=== PATIENT | female | born 1960 | race Hispanic/Latino ===

== ENCOUNTER 2017-03-03 14:40 | Emergency (ER) | payer MEDICARE ==
[2017-03-03] MEDS ORDERED: BABY ASPIRIN PO ONE (15:34)
[2017-03-03 15:51] LABS: Basophils % (Auto) 0.9 % (0.0-1.8); Eosinophils % (Auto) 6.9 % (0.0-4.3); Hematocrit 45.5 % (30.3-42.9); Mean Corpuscular HGB Conc 33 % (30-34); Mean Corpuscular Hemoglobin 31 pg (28-32); Mean Corpuscular Volume 93 fl (79-97); Platelet Count 217 K/mm3 (140-440); Red Blood Count 4.88 M/mm3 (3.65-5.03); Red Cell Distribution Width 14.2 % (13.2-15.2); White Blood Count 12.4 K/mm3 (4.5-11.0)
[2017-03-03 16:02] LABS: INR 1.01 (0.87-1.13)
[2017-03-03 16:14] LABS: BUN/Creatinine Ratio 17.14; Blood Urea Nitrogen 12 mg/dL (7-17); Calcium 9.1 mg/dL (8.4-10.2); Carbon Dioxide 30 mmol/L (22-30); Glucose 115 mg/dL (65-100)
[2017-03-03 16:15] LABS: Alanine Aminotransferase 21 units/L (7-56); Albumin 3.7 g/dL (3.9-5); Albumin/Globulin Ratio 1.1 %; Alkaline Phosphatase 93 units/L (35-129); Anion Gap 16 mmol/L; Chloride 95.7 mmol/L (98-107); Potassium 3.6 mmol/L (3.6-5.0); Sodium 138 mmol/L (137-145)
--- NOTE | 2017-03-03 18:23 | Emergency Department Report ---
ED Chest Pain HPI - General Chief Complaint: Chest Pain Stated Complaint: CHEST PAIN Time Seen by Provider: 03/03/17 15:34 Source: patient, EMS Mode of arrival: Stretcher Limitations: Other - History of Present Illness Initial Comments: Hx of COPD on 3L home O2. Denies NH or PE. Denies significant fam hx Complaint: chest pain -: days(s) (1 day ago. No chest pain today. Reports one episode yesterday. Came in at the request of family today) Onset: during rest Pain Location: substernal Pain Radiation: none Severity: mild Severity scale (0 -10): 2 Quality: other (burning. Reports history of acid reflux) Consistency: intermittent (lasting seconds) Improves With: nothing Worsens With: nothing re: denies: nausea, vomting, diaphoresis, dyspnea, sense of impending doom Other Symptoms: acid taste in mouth. denies: cough, fever, syncope, rash, leg swelling, palpitations, burping - Related Data Allergies Allergy/AdvReac Type Severity Reaction Status Date / Time Penicillins Allergy Unknown Verified 03/03/17 14:57 Heart Score - HEART Score History: Slightly suspicious EKG: Normal Age: 45-65 Risk factors: 1-2 risk factors Troponin: < normal limit HEART Score: 2 ED Review of Systems ROS: Stated complaint: CHEST PAIN Other details as noted in HPI Other: GENERAL: No weight change, fatigue, weakness, fever, chills, or night sweats SKIN: No changes in skin or hair, no itching, no rashes, no jaundice HEAD: No trauma, headache, or visual changes EYES: No blurriness, tearing, itching, acute visual loss, conjunctival discoloration, or scleral icterus EARS: No hearing loss, tinnitus, vertigo, or earache NOSE: No rhinorrhea, stuffiness, sneezing, itching, or epistaxis MOUTH: No bleeding gums, hoarseness, sore throat, or swelling CARDIAC: chest pain 1 episode yesterday. no chest pain today RESPIRATORY: No shortness of breath, wheeze, cough, sputum production, hemoptysis, pneumonia, asthma, bronchitis, or emphysema GI: No change in appetite, nausea, vomiting, dysphagia, change in bowel frequency, diarrhea, constipation, bleeding, hematemesis, melena, hematochezia, or abdominal pain URINARY: No frequency, urgency, polyuria, dysuria, hematuria, or incontinence MUSCULOSKELETAL: No muscle weakness, joint stiffness, decrease in range of motion, redness, swelling, tenderness NEUROLOGIC: No loss of sensation, numbness, tingling, tremors, weakness, paralysis, seizures HEMATOLOGIC: No anemia, easy bruising, bleeding, petechiae, or purpura ENDOCRINE: No hot or cold intolerance, sweating, polyuria, polydipsia or, polyphagia no thyroid problems PSYCHIATRIC: No change in mood, no anxiety, no depression ED Past Medical Hx - Past Medical History Previous Medical History?: Yes Hx Asthma: Yes Additional medical history: high cholesterol - Surgical History Past Surgical History?: No - Social History Smoking Status: Current Every Day Smoker Substance Use Type: None ED Physical Exam - General Limitations: Other - Other Other exam information: GENERAL: Patient in no acute distress HEAD: Normocephalic, atraumatic EYES: PERRLA, EOM intact, no scleral icterus, no conjunctival hemorrhage, visual burton and acuity wnl, NOSE: No tenderness, discharge, sinus tenderness MOUTH: No erythema, bleeding, exudate HEART: Regular rate and rhythm, no murmur, S1-S2 are auscultated, pulses are symmetric LUNGS: No wheezing, rales, rhonchi, bilateral breath sounds ABDOMEN: Normal bowel sounds, no tenderness, no rebound, no guarding, no masses , no CVA tenderness MUSCULOSKELETAL: Normal joint range of motion, no redness, no swelling, no tenderness NEUROLOGIC: GCS 15, Alert and Oriented x3, Cranial nerves intact, normal sensation, normal strength, no cerebellar deficit PSYCHIATRIC: No homicidal or suicidal ideation, no anxiety, no depression, no hallucinations SKIN: Skin is warm and dry, no wounds, no rashes ED Course Vital Signs 03/03/17 03/03/17 03/03/17 15:10 15:19 16:01 Pulse Rate 94 H Respiratory 18 Rate Blood Pressure 151/60 O2 Sat by Pulse 96 93 95 Oximetry 03/03/17 03/03/17 03/03/17 17:01 18:01 19:01 Pulse Rate 110 H Respiratory 21 Rate Blood Pressure 151/60 151/60 151/60 O2 Sat by Pulse 98 98 97 Oximetry MIKAL score - Mikal Score Age > 65: (0) No Aspirin use within the Past 7 Days: (0) No 3 or more CAD Risk Factors: (0) No 2 or more Angina events in past 24 hrs: (0) No Known CAD with more than 50% Stenosis: (0) No Elevated Cardiac Markers: (0) No ST Deviation Greater than 0.5mm: (0) No MIKAL Score: 0 ED Medical Decision Making - Lab Data Result diagrams: 03/03/17 15:38 03/03/17 15:38 - EKG Data When compared to previous EKG there are: no significant change - Radiology Data Radiology results: report reviewed - Medical Decision Making Patient comfortable. Updated with results. Plan discharge with outpatient follow-up. Patient agrees with plan and will return if symptoms worsen. Critical care attestation.: If time is entered above; I have spent that time in minutes in the direct care of this critically ill patient, excluding procedure time. ED Disposition Clinical Impression: Chest pain Qualifiers: Chest pain type: unspecified Qualified Code(s): R07.9 - Chest pain, unspecified Disposition: - TO HOME OR SELFCARE Is pt being admited?: No Condition: Stable Instructions: Chest Pain (ED) Referrals: MIO CONTRERAS MD [Primary Care Provider] - 2-3 Days JENNIFER NEWSOME MD [Staff Physician] - 2-3 Days Time of Disposition: 19:14
[2017-03-03 19:04] VITALS: BP 151/60
--- NOTE | 2017-03-04 07:53 | XRay Report ---
ROUTINE CHEST, TWO VIEWS: HISTORY: Hypertension. The trachea, heart, mediastinal contour, lung burton and bony thorax are unremarkable. IMPRESSION: No acute cardiopulmonary process is identified.
== END 2017-03-03 20:06 | disposition home or self-care (01) ==
LOC: ED 14:40
DX: R07.9 Chest pain, unspecified (principal); J44.9 Chronic obstructive pulmonary disease, unspecified; E78.00 Pure hypercholesterolemia, unspecified; J45.909 Unspecified asthma, uncomplicated; F17.200 Nicotine dependence, unspecified, uncomplicated; K21.9 Gastro-esophageal reflux disease without esophagitis; Z88.0 Allergy status to penicillin; Z99.81 Dependence on supplemental oxygen
CPT/HCPCS: 36415; 71020; 80053; 83735; 83880; 84484; 85025; 85379; 85610; 93005; 93010; 99284

== ENCOUNTER 2018-11-10 10:34 | Outpatient (CLI) | payer MEDICARE ==
--- NOTE | 2018-11-10 13:39 | Mammography Report ---
BILATERAL DIGITAL SCREENING MAMMOGRAM with CAD: 11/10/18 10:34:00 CLINICAL: Routine screening. COMPARISON:None. Previous mammograms from [facility] are not available. FINDINGS: There are scattered areas of fibroglandular density.Bilateral scattered benign calcifications. A large number of left upper outer calcifications suggest previous trauma with benign fat necrosis. No mass, suspicious architectural distortion or suspicious calcifications. IMPRESSION: No mammographic evidence of malignancy. BI-RADS CATEGORY: 2 -- Benign RECOMMENDATION: Routine mammographic screening in one year. COMMENT: Patient follow-up letters are generated by our [employer] application.
== END 2018-11-10 10:35 | disposition home or self-care (01) ==
LOC: SPVWC 10:34
PROVIDERS: ATTEND Hospitalist
DX: Z12.31 Encounter for screening mammogram for malignant neoplasm of breast (principal); J45.909 Unspecified asthma, uncomplicated; F17.210 Nicotine dependence, cigarettes, uncomplicated
CPT/HCPCS: 77067

== ENCOUNTER 2020-06-10 23:15 | Observation (INO) | payer MEDICARE ==
[2020-06-11] MEDS ORDERED: GLUCAGON (HUMAN RECOMBINANT) 1 MG/ML INJ IV ONE (01:28)
--- NOTE | 2020-06-11 01:37 | Emergency Department Report ---
ED Abdominal Pain HPI - General Chief Complaint: Sore Throat Stated Complaint: FOOD STUCK PUI?: No Time Seen by Provider: 06/11/20 01:23 Source: patient Mode of arrival: Ambulatory Limitations: Other - History of Present Illness Initial Comments: CC: "I did it again." HPI: THis is a 60 yo female with hx of COPD on home oxygen, esophagitis, hiatal hernia presents with recurrent food impaction. In February, Mrs. Whelan was admitted to this hospital. At that time, she was evaluated with EGD which showed food impaction in the distal esophagus. Years ago, she had previous food impaction. At that time, esophageal stricture was a consideration. Today, Mrs. Whelan ate chicken. Since that time, she has epigastric, lower sternum dull discomfort. She is unable to keep down liquids. MD Complaint: abdominal pain -: Gradual, This evening Location: epigastric Radiation: chest Severity: moderate Quality: dull Consistency: constant Worsens With: other (drinking) Context: other (hx of food impaction) Associated Symptoms: denies other symptoms - Related Data Previous Rx's Medication Instructions Recorded Last Taken Type Cyclobenzaprine [Flexeril 10 MG 10 mg PO TID PRN #30 tablet 06/01/19 Unknown Rx TAB] Menthol/Camphor [[place] 1 applicatio TP QID #1 tube 06/01/19 Unknown Rx Ointment] Acetaminophen [Acetaminophen TAB] 1,000 mg PO Q6HR #30 tablet 03/03/20 Unknown Rx Ondansetron [Zofran ODT TAB] 4 mg PO Q8HR PRN #15 tab.rapdis 03/03/20 Unknown Rx Pantoprazole [Protonix] 40 mg PO QDAY #30 tablet 03/06/20 Unknown Rx Allergies Allergy/AdvReac Type Severity Reaction Status Date / Time Penicillins Allergy Unknown Verified 03/02/20 22:01 ED Review of Systems ROS: Stated complaint: FOOD STUCK Other details as noted in HPI Comment: All other systems reviewed and negative Constitutional: denies: fever, malaise Respiratory: denies: cough, shortness of breath Cardiovascular: chest pain Gastrointestinal: nausea, vomiting Musculoskeletal: denies: back pain ED Past Medical Hx - Past Medical History Previous Medical History?: Yes Hx Hypertension: Yes Hx Congestive Heart Failure: No Hx Diabetes: No Hx Asthma: Yes (uses inhaler) Hx COPD: Yes Additional medical history: high cholesterol - Surgical History Past Surgical History?: No - Social History Smoking Status: Never Smoker - Medications Home Medications: Home Medications Medication Instructions Recorded Confirmed Last Taken Type Cyclobenzaprine [Flexeril 10 MG 10 mg PO TID PRN #30 tablet 06/01/19 03/04/20 Unknown Rx TAB] Menthol/Camphor [[place] 1 applicatio TP QID #1 tube 06/01/19 03/04/20 Unknown Rx Ointment] Acetaminophen [Acetaminophen TAB] 1,000 mg PO Q6HR #30 tablet 03/03/20 03/04/20 Unknown Rx Ondansetron [Zofran ODT TAB] 4 mg PO Q8HR PRN #15 tab.rapdis 03/03/20 03/04/20 Unknown Rx Pantoprazole [Protonix] 40 mg PO QDAY #30 tablet 03/06/20 Unknown Rx ED Physical Exam - General Limitations: Other General appearance: alert, in no apparent distress - Head Head exam: Present: atraumatic, normocephalic - Eye Eye exam: Present: normal appearance - ENT ENT exam: Present: mucous membranes moist - Neck Neck exam: Present: normal inspection, full ROM - Respiratory Respiratory exam: Present: normal lung sounds bilaterally. Absent: respiratory distress, wheezes, rales, rhonchi - Cardiovascular Cardiovascular Exam: Present: regular rate, normal rhythm, normal heart sounds. Absent: systolic murmur, diastolic murmur, rubs, gallop - GI/Abdominal GI/Abdominal exam: Present: soft, normal bowel sounds. Absent: distended, tenderness, guarding, rebound - Extremities Exam Extremities exam: Present: normal inspection - Neurological Exam Neurological exam: Present: alert, oriented X3 - Psychiatric Psychiatric exam: Present: normal affect, normal mood - Skin Skin exam: Present: warm, dry, intact, normal color. Absent: rash ED Course Vital Signs 06/10/20 06/11/20 06/11/20 23:25 01:35 01:45 Temperature 98.7 F 97.8 F Pulse Rate 107 H 104 H 107 H Respiratory 15 24 15 Rate Blood Pressure 147/85 161/79 161/79 Blood Pressure 161/79 [Left] O2 Sat by Pulse 91 97 95 Oximetry 06/11/20 06/11/20 06/11/20 02:00 02:15 02:49 Temperature Pulse Rate 102 H 101 H Respiratory 24 18 18 Rate Blood Pressure 160/71 161/79 Blood Pressure [Left] O2 Sat by Pulse 98 97 Oximetry 06/11/20 03:01 Temperature Pulse Rate 106 H Respiratory 17 Rate Blood Pressure 164/56 Blood Pressure [Left] O2 Sat by Pulse 95 Oximetry ED Medical Decision Making - Lab Data Result diagrams: 06/11/20 01:35 06/11/20 01:35 - Radiology Data Radiology results: report reviewed CHEST 1 VIEW 06/11/2020 2:17 AM INDICATION / CLINICAL INFORMATION: dysphagia. COMPARISON: Chest x-ray on 03/04/2020 FINDINGS: SUPPORT DEVICES: None. HEART / MEDIASTINUM: No significant abnormality. LUNGS / PLEURA: No significant pulmonary or pleural abnormality. No pneumothorax. ADDITIONAL FINDINGS: No significant additional findings. IMPRESSION: 1. No acute findings. - Medical Decision Making Impression: recurrent food impaction, hx of esophagitis, hiatal hernia, possibl e esophageal stricture vs achalasia I discussed case with GI specialist Dr. Barboza. She will arrange for EGD/consultation. Dr. Barboza requested admission to hospitalist service. Mrs. Whelan treated with IV glucagon and protonix in the ED with persistent symptoms. Basic labs obtained. CBC notable for mild leukocytosis. Chemistry unremarkable. Critical care attestation.: If time is entered above; I have spent that time in minutes in the direct care of this critically ill patient, excluding procedure time. ED Disposition Clinical Impression: Dysphagia, Food impaction of esophagus Disposition: OP ADMIT IP TO THIS HOSP Is pt being admited?: Yes Does the pt Need Aspirin: No Condition: Stable
[2020-06-11 01:55] LABS: Basophils % (Auto) 0.4 % (0.0-1.8); Eosinophils # (Auto) 0.3 K/mm3 (0.0-0.4); Eosinophils % (Auto) 2.2 % (0.0-4.3); Hematocrit 43.8 % (30.3-42.9); Hemoglobin 14.3 gm/dl (10.1-14.3); Lymphocytes # (Auto) 2.2 K/mm3 (1.2-5.4); Lymphocytes % (Auto) 18.1 % (13.4-35.0); Mean Corpuscular HGB Conc 33 % (30-34); Mean Corpuscular Volume 93 fl (79-97); Monocytes # (Auto) 0.8 K/mm3 (0.0-0.8); Monocytes % (Auto) 6.2 % (0.0-7.3); Platelet Count 252 K/mm3 (140-440); Red Blood Count 4.69 M/mm3 (3.65-5.03); Red Cell Distribution Width 14.9 % (13.2-15.2)
[2020-06-11 02:14] LABS: BUN/Creatinine Ratio 19; Blood Urea Nitrogen 17 mg/dL (7-17); Calcium 9.4 mg/dL (8.4-10.2); Hemolysis Index 9
[2020-06-11] MEDS ORDERED: PANTOPRAZOLE 40 MG INJ IV ONE (02:16)
[2020-06-11] MEDS ORDERED: MORPHINE 4 MG/1 ML INJ IV ONE (02:45)
[2020-06-11] MEDS ORDERED: ONDANSETRON 4 MG/2 ML INJ IV ONE (02:45)
[2020-06-11] MEDS ORDERED: MORPHINE 4 MG/1 ML INJ ONE (02:47)
[2020-06-11] MEDS ORDERED: ONDANSETRON 4 MG/2 ML INJ IV PRN (02:50)
[2020-06-11] MEDS ORDERED: ACETAMINOPHEN 325 MG TAB PO PRN (02:50)
[2020-06-11] MEDS ORDERED: MORPHINE 2 MG/1 ML INJ IV PRN (02:50)
--- NOTE | 2020-06-11 02:59 | History and Physical Report ---
History of Present Illness Date of examination: 06/11/20 Date of admission: 06/11/2020 Chief complaint: Difficulty Swallowing History of present illness: 60-year-old female with known history of COPD on home oxygen, hiatal hernia and history of esophagitis presenting to the emergency room today complaining of inability to swallow. Patient has known history of recurrent food impaction. She had some chicken today and started having epigastric discomfort and some d ull ache in the lower sternal area. She has not been able to swallow fluids since this occurrence. She was seen few months ago and evaluated with EGD for food impaction in the distal esophagus. She has also been seen years ago for similar presentations. She was thought to also have possible stricture. Hospitality Team Member Dr. ROCHA has been consulted by the ER physician. Patient currently made n.p.o. for possible evaluation this a.m. Past History Past Medical History: COPD, GERD, hyperlipidemia, other (Hiatal Hernia, Esophagitis) Past Surgical History: No surgical history Social history: smoking (Current daily smoker) Family history: no significant family history Medications and Allergies Allergies Allergy/AdvReac Type Severity Reaction Status Date / Time Penicillins Allergy Unknown Verified 03/02/20 22:01 Home Medications Medication Instructions Recorded Confirmed Last Taken Type Cyclobenzaprine [Flexeril 10 MG 10 mg PO TID PRN #30 tablet 06/01/19 06/11/20 Unknown Rx TAB] Menthol/Camphor [[place] 1 applicatio TP QID #1 tube 06/01/19 06/11/20 Unknown Rx Ointment] Acetaminophen [Acetaminophen TAB] 1,000 mg PO Q6HR #30 tablet 03/03/20 06/11/20 Unknown Rx Ondansetron [Zofran ODT TAB] 4 mg PO Q8HR PRN #15 tab.rapdis 03/03/20 06/11/20 Unknown Rx Pantoprazole [Protonix] 40 mg PO QDAY #30 tablet 03/06/20 06/11/20 Unknown Rx Active Meds: Active Medications Acetaminophen (Tylenol) 650 mg PO Q4H PRN PRN Reason: Pain MILD(1-3)/Fever >100.5/[place] Sodium Chloride (Nacl 0.9% 1000 Ml) 1,000 mls @ 75 mls/hr IV DIRECT TENZIN Morphine Sulfate (Morphine) 2 mg IV Q4H PRN PRN Reason: Pain, Moderate (4-6) Ondansetron HCl (Zofran) 4 mg IV Q8H PRN PRN Reason: Nausea And Vomiting Sodium Chloride (Sodium Chloride Flush Syringe 10 Ml) 10 ml IV BID TENZIN Sodium Chloride (Sodium Chloride Flush Syringe 10 Ml) 10 ml IV PRN PRN PRN Reason: LINE FLUSH Review of Systems Constitutional: no fever, no chills Ears, nose, mouth and throat: no nasal congestion, no sore throat Cardiovascular: no chest pain, no palpitations Respiratory: no cough, no shortness of breath Gastrointestinal: abdominal pain, nausea, vomiting, other (Inability to swallow), no diarrhea Genitourinary Female: no pelvic pain, no flank pain, no dysuria Musculoskeletal: no neck pain, no low back pain Integumentary: no rash, no pruritis Neurological: no headaches, no confusion Exam - Constitutional Vitals: Temp Pulse Resp BP Pulse Ox 97.8 F 101 H 18 161/79 97 06/11/20 01:35 06/11/20 02:15 06/11/20 02:49 06/11/20 02:15 06/11/20 02:15 General appearance: Present: no acute distress, well-nourished - EENT Eyes: Present: PERRL, EOM intact. Absent: scleral icterus ENT: hearing intact, clear oral mucosa, dentition normal - Neck Neck: Present: supple, normal ROM - Respiratory Respiratory effort: normal Respiratory: bilateral: CTA - Cardiovascular Rhythm: regular Heart Sounds: Present: S1 & S2. Absent: gallop, systolic murmur, diastolic murmur, rub - Extremities Extremities: no ischemia, pulses intact, pulses symmetrical, No edema, Full ROM Peripheral Pulses: within normal limits - Abdominal General gastrointestinal: Present: soft, non-tender, non-distended, normal bowel sounds. Absent: mass - Integumentary Integumentary: Present: clear, warm, dry, rash (Psoriatic rash on right silva and right knee) - Musculoskeletal Musculoskeletal: strength equal bilaterally - Psychiatric Psychiatric: appropriate mood/affect, intact judgment & insight, memory intact, cooperative - Neurologic Neurologic: CNII-XII intact, no focal deficits, moves all extremities Results - Labs CBC & Chem 7: 06/11/20 01:35 09/29/20 01:35 Labs: Abnormal lab results 06/11/20 06/11/20 Range/Units 01:35 01:35 WBC 12.3 H (4.5-11.0) K/mm3 Hct 43.8 H (30.3-42.9) % Seg Neutrophils % 73.1 H (40.0-70.0) % Seg Neutrophils # 9.0 H (1.8-7.7) K/mm3 Chloride 94.5 L (98-107) mmol/L Carbon Dioxide 33 H (22-30) mmol/L Glucose 164 H (65-100) mg/dL Assessment and Plan - Patient Problems (1) Food impaction of esophagus Current Visit: Yes Status: Acute Plan to address problem: Patient has known history of esophagitis, GERD, and her hernia and possible history of esophageal stricture. Will be evaluated by sales administration manager this a.m. Meanwhile will place on IV analgesic medication and also placed on PPI (2) DVT prophylaxis Current Visit: No Status: Acute Plan to address problem: Patient placed on sequential compression device. (3) Full code status Current Visit: Yes Status: Acute
[2020-06-11] MEDS ORDERED: SODIUM CHLORIDE 0.9% 1000 ML 1,000 ML IV SCH ×2 (03:00→08:00)
--- NOTE | 2020-06-11 03:27 | XRay Report ---
CHEST 1 VIEW 06/11/2020 2:17 AM INDICATION / CLINICAL INFORMATION: dysphagia. COMPARISON: Chest x-ray on 03/04/2020 FINDINGS: SUPPORT DEVICES: None. HEART / MEDIASTINUM: No significant abnormality. LUNGS / PLEURA: No significant pulmonary or pleural abnormality. No pneumothorax. ADDITIONAL FINDINGS: No significant additional findings. IMPRESSION: 1. No acute findings. Signer Name: Grant Medina MD Signed: 06/11/2020 3:22 AM Workstation Name: [id number]
--- NOTE | 2020-06-11 07:35 | Gastroenterology Consultation ---
History of Present Illness - Reason for Consult Consult date: 06/11/20 food impaction Requesting physician: UZMA DALE - History of Present Illness This is a 60 yo female with pmh of COPD on home O2, esophagitis, hiatal hernia and h/o food impaction presented to the ED for food impaction. She was admitted in 02/2020 for similar presentation and had EGD, which showed food impaction at the distal esophagus, pushed down into the stomach, and possible distal esoph ageal stricture and esophagitis. She reports eating a piece of chicken yesterday evening around 7 pm and felt that it got stuck in her chest. Since then, she is not able to swallow even liquids. When she tried to drink water, she would get severe pain in her chest and bring it back up. No anticoagulation. Medication list reviewed. Past History Past Medical History: COPD, GERD, hyperlipidemia, other (Hiatal Hernia, Esophagitis) Past Surgical History: No surgical history Social history: smoking (Current daily smoker) Family history: no significant family history Medications and Allergies Allergies Allergy/AdvReac Type Severity Reaction Status Date / Time Penicillins Allergy Unknown Verified 03/02/20 22:01 Home Medications Medication Instructions Recorded Confirmed Last Taken Type Cyclobenzaprine [Flexeril 10 MG 10 mg PO TID PRN #30 tablet 06/01/19 06/11/20 Unknown Rx TAB] Menthol/Camphor [[place] 1 applicatio TP QID #1 tube 06/01/19 06/11/20 Unknown Rx Ointment] Acetaminophen [Acetaminophen TAB] 1,000 mg PO Q6HR #30 tablet 03/03/20 06/11/20 Unknown Rx Ondansetron [Zofran ODT TAB] 4 mg PO Q8HR PRN #15 tab.rapdis 03/03/20 06/11/20 Unknown Rx Pantoprazole [Protonix] 40 mg PO QDAY #30 tablet 03/06/20 06/11/20 Unknown Rx Active Meds: Active Medications Acetaminophen (Tylenol) 650 mg PO Q4H PRN PRN Reason: Pain MILD(1-3)/Fever >100.5/[place] Sodium Chloride (Nacl 0.9% 1000 Ml) 1,000 mls @ 75 mls/hr IV DIRECT TENZIN Morphine Sulfate (Morphine) 2 mg IV Q4H PRN PRN Reason: Pain, Moderate (4-6) Ondansetron HCl (Zofran) 4 mg IV Q8H PRN PRN Reason: Nausea And Vomiting Pantoprazole Sodium (Protonix) 40 mg IV BID TENZIN Sodium Chloride (Sodium Chloride Flush Syringe 10 Ml) 10 ml IV BID TENZIN Sodium Chloride (Sodium Chloride Flush Syringe 10 Ml) 10 ml IV PRN PRN PRN Reason: LINE FLUSH Review of Systems - Review of Systems All systems: negative Constitutional: no weight loss, no weight gain Cardiovascular: chest pain Gastrointestinal: abdominal pain, nausea, vomiting Endocrine: no cold intolerance Hematologic/Lymphatic: no easy bruising Allergic/Immunologic: no wheezing Exam - Constitutional Vital Signs: Temp Pulse Resp BP Pulse Ox 97.8 F 102 H 18 134/95 95 06/11/20 01:35 06/11/20 04:20 06/11/20 04:20 06/11/20 04:20 06/11/20 04:20 General appearance: no acute distress - EENT Eyes: EOM intact - Neck Neck: supple - Respiratory Respiratory effort: normal - Cardiovascular Rhythm: regular Heart Sounds: Present: S1 & S2 - Gastrointestinal General gastrointestinal: Present: soft, non-tender, non-distended - Neurologic Neurological: alert and oriented x3 - Psychiatric Psychiatric: appropriate mood/affect - Labs CBC & Chem 7: 06/11/20 01:35 06/11/20 01:35 Lab Results: Laboratory Results - last 24 hr 06/11/20 06/11/20 01:35 01:35 WBC 12.3 H RBC 4.69 Hgb 14.3 Hct 43.8 H MCV 93 MCH 31 MCHC 33 RDW 14.9 Plt Count 252 Lymph % (Auto) 18.1 [place] % (Auto) 6.2 Eos % (Auto) 2.2 Baso % (Auto) 0.4 Lymph # (Auto) 2.2 [place] # (Auto) 0.8 Eos # (Auto) 0.3 Baso # (Auto) 0.0 Seg Neutrophils % 73.1 H Seg Neutrophils # 9.0 H Sodium 141 Potassium 4.2 Chloride 94.5 L Carbon Dioxide 33 H Anion Gap 18 BUN 17 Creatinine 0.9 Estimated GFR > 60 BUN/Creatinine Ratio 19 Glucose 164 H Calcium 9.4 - Imaging X-ray: report reviewed Assessment and Plan # Food impaction - h/o esophageal food impaction. EGD in 02/2020 showing possible esophageal stricture/esophagitis and hiatal hernia - VS stable. - CXR unremarkable. Rec - will plan for EGD - keep NPO - Patient Problems (1) Food impaction of esophagus Current Visit: Yes Status: Acute
[2020-06-11] MEDS ORDERED: SODIUM CHLORIDE 0.9% 1000 ML 1,000 ML ONE (07:54)
[2020-06-11] MEDS ORDERED: propofoL 200 MG/20 ML VIAL IV ONE ×4 (08:15→09:05)
--- NOTE | 2020-06-11 09:33 | Operative Report ---
Operative Report Operative Report: Date:06/11/2020 Pre procedure diagnosis:food impaction Post procedure diagnosis:food impaction, esophagitis Procedure: Esophagogastroduodenoscopy with foreign body removal Endoscopist: Shay Barboza MD Medications: Per anesthesia- see separate records for details Complications:none Estimated blood loss: None After careful discussion of the nature and purpose of the procedure, details of the technique, risks, benefits and alternatives, the patient gave consent. The patient was placed in the left lateral decubitus position and medicated by anesthesia- see separate records for details. The tip of the olympus video upper scope was passed per orum under direct view through the mouth and into the esophagus. There was retained food impacted at the mid to distal esophagus at around 34 cm from the gum. The food bolus was removed using a combination of a JOSHI net, cold biopsy forcep, snare, grasper, and foreign body retrieval basket. The scope was advanced to the stomach and duodenum. The scope was advanced to the secondportion of the duodenum without difficulty. The second portion of the duodenumwasnormal. The bulb revealed normal findings. The scope was withdrawn back into the stomach and the stomach gently insufflated with air. The antrum revealed erythematous mucosa. The scope was then retroflexed and partially withdrawn to inspect the proximal stomach. The cardia, fundus and body were normal. The scope was then withdrawn in the forward view. There was a small hiatal hernia.The distal esophagus revealed moderate esophagitis at GE junction. No definitive esophageal stricture noted. The proximal esophagus was normal. The procedure was well tolerated and the patient was observed in the GI recovery unit. IMPRESSION: 1. Food impacted at the mid to distal esophagus. Food bolus removed and esophagus cleared. 2. A small hiatal hernia. 3. No definitive esophageal stricture. 4. Mild distal esophagitis (LA grade B). 5. Normal duodenum exam Plan: 1. Continue with protonix. 2. Start clear liquids and advance as tolerated. 3. If tolerating PO, can discharge today. 4. Follow up in GI clinic for repeat EGD with possible dilation. Shay Barboza MD (Jenny) [facility]
--- NOTE | 2020-06-11 09:49 | Anesthesia Consultation ---
Anesthesia Consult and Med Hx Date of service: 06/11/20 - Airway Anesthetic Teeth Evaluation: Dentures (upper and lower) ROM Head & Neck: Adequate Mental/Hyoid Distance: Inadequate Mallampati Class: Class III Intubation Access Assessment: Possibly Difficult - Pulmonary Exam CTA: No (end expiratory wheezes) - Cardiac Exam Cardiac Exam: RRR (low grade tachycardia) - Pre-Operative Health Status ASA Pre-Surgery Classification: ASA4, Emergency Proposed Anesthetic Plan: MAC - Pulmonary Hx Smoking: Yes (20pk yr hx) Hx Asthma: Yes COPD: Yes Home Oxygen Therapy: Yes (3L continuous) - Cardiovascular System Hx Hypertension: Yes Hx Heart Attack/AMI: No Hx Percutaneous Transluminal Coronary Angioplasty (PTCA): No Hx Cardia Arrhythmia: No - Central Nervous System CVA: No Hx Psychiatric Problems: Yes (depression/anxiety) - Gastrointestinal Hx Ulcer: Yes Hx Gastroesophageal Reflux Disease: Yes (dysphagea) - Endocrine Hx Renal Disease: No Hx Liver Disease: No Hx Insulin Dependent Diabetes: No Hx Non-Insulin Dependent Diabetes: No Hx Thyroid Disease: No - Hematic Hx Anemia: No - Other Systems Hx Obesity: Yes (BMI 43) - Additional Comments Anesthesia Medical History Comments: No hx anesthetic complications.
--- NOTE | 2020-06-11 09:49 | Anesthesia Day of Surgery ---
Anesthesia Day of Surgery - Day of Surgery Patient Examined: Yes Patient H&P Reviewed: Yes
[2020-06-11] MEDS ORDERED: PANTOPRAZOLE 40 MG INJ IV SCH (10:00)
[2020-06-11 10:21] VITALS: BP 132/49
--- NOTE | 2020-06-11 10:21 | Post Anesthesia Evaluation ---
- Post Anesthesia Evaluation Patient Participated: Yes Airway Patent: Yes Stable Respiratory Function: Yes Nausea/Vomiting: No Temp > 96.8F: Yes Pain Manageable: Yes Adequeate Hydration: Yes Anesthesia Complications: No
--- NOTE | 2020-06-11 14:58 | Discharge Summary ---
Providers - Providers Date of Admission: 06/11/20 02:13 Date of discharge: 06/11/20 Attending physician: FEROZ RUANO 06/11/20 01:42 Consult to Physician [CONS] Stat Comment: Consulting Provider: MALINDA ROCHA Physician Instructions: Reason For Exam: dysphagia, food impaction [facility] Condition: Stable Pertinent studies: Chest x-ray: No acute finding Hospital course: 60-year-old female with history of COPD on home oxygen, hiatal hernia and h/o food impaction comes in for inability to swallow. She had some chicken today and started having epigastric discomfort and some dull ache in the lower sternal area. She has not been able to swallow fluids since this occurrence. She was seen few months ago and evaluated with EGD for food impaction in the distal esophagus. GI was consulted and patient was further evaluated with an EGD which showed a solid impaction of food in the mid to distal esophagus which was pushed into stomach. Stomach duodenum noted to be grossly normal with mild esophagitis and hiatal hernia. Patient was placed on GI soft diet which she tolerated well. Patient will be discharged home in stable condition with outpatient follow-up. Patient was also advised to continue PPI. Discharge diagnosis and management: / Esophageal obstruction due to food impaction Possible esophageal stricture, GI consult requested. s/p EGD EGD: 1. Food impacted at the mid to distal esophagus. Food bolus removed and esophagus cleared. 2. A small hiatal hernia. 3. No definitive esophageal stricture. 4. Mild distal esophagitis (LA grade B). 5. Normal duodenum exam Patient was placed on clear liquid diet and she tolerated well, placed on PPI. Patient was then discharged home in stable condition with outpatient follow-up. She was recommended to advance diet as tolerated and to f/u with GI clinic for repeat EGD with possible dilation. / COPD (chronic obstructive pulmonary disease) Continue duo nebs PRN. Continue 2 L oxygen. /Leukocytosis, likely reactive /Obesity, weight reduction diet regimen as outpatient / DVT prophylaxis On heparin and GI prophylaxis Disposition: TO HOME OR SELFCARE Time spent for discharge: 34 minutes Core Measure Documentation - Palliative Care Palliative Care/ Comfort Measures: Not Applicable - Core Measures Any of the following diagnoses?: none Exam - Physical Exam Narrative exam: GENERAL: well-developed and morbid obese female lying on bed appeared to be in no discomfort. HEENT: Normocephalic. Atraumatic. No conjunctival congestion or icterus. Patient has moist mucous membranes. NECK: Supple. Trachea midline. CHEST/LUNGS: Clear to auscultated bilaterally, breathing nonlabored. No wheezes crackles or rhonchi. HEART/CARDIOVASCULAR: Regular in rate and rhythm. S1 and S2 positive. ABDOMEN: Abdomen is soft, nontender. Patient has normal bowel sounds. SKIN: There is no rash. Warm and dry. NEURO: No focal motor deficit. Follows command. MUSCULOSKELETAL: No joint effusion or tenderness. EXTRIMITY: No edema, no cyanosis or clubbing. PSYCH: Cooperative. - Constitutional Vitals: Temp Pulse Resp BP Pulse Ox 97.6 F 105 H 16 132/49 98 06/11/20 10:19 06/11/20 10:19 06/11/20 10:19 06/11/20 10:19 06/11/20 10:19 Plan Activity: advance as tolerated Weight Bearing Status: Weight Bear as Tolerated Diet: advance as tolerated Follow up with: ROSALINE JUAN MD [Primary Care Provider] - 3-5 Days
== END 2020-06-11 18:05 | disposition home or self-care (01) ==
LOC: ED 23:15 → 3A 06-11 02:13
PROVIDERS: ADMIT Internal Medicine Geriatric Medicine; ATTEND Internal Medicine
DX: T18.128A Food in esophagus causing other injury, initial encounter (principal); K44.9 Diaphragmatic hernia without obstruction or gangrene; J44.9 Chronic obstructive pulmonary disease, unspecified; K21.0 Gastro-esophageal reflux disease with esophagitis; E78.5 Hyperlipidemia, unspecified; F17.200 Nicotine dependence, unspecified, uncomplicated; D72.829 Elevated white blood cell count, unspecified; E66.9 Obesity, unspecified; E78.00 Pure hypercholesterolemia, unspecified; Z99.81 Dependence on supplemental oxygen; Z79.899 Other long term (current) drug therapy; Z88.0 Allergy status to penicillin; X58.XXXA Exposure to other specified factors, initial encounter; Y93.89 Activity, other specified; Y92.89 Other specified places as the place of occurrence of the external cause; Z68.41 Body mass index [BMI] 40.0-44.9, adult
CPT/HCPCS: 36415; 43247; 71045; 80048; 85025; 96361; 96374; 96375; 96376; 99284; C9113; G0378; J1610; J2270; J2405; J2704; J7030

== ENCOUNTER 2020-10-24 18:10 | Emergency (ER) | payer MEDICARE ==
[2020-10-24 18:46] VITALS: BP 183/89
--- NOTE | 2020-10-24 19:23 | Emergency Department Report ---
ED General Adult HPI - General Chief complaint: Skin Rash Stated complaint: BILATERAL LEG/FEET Source: patient Mode of arrival: Ambulatory Limitations: No Limitations - History of Present Illness Initial comments: Patient is a 60-year-old white female with a history of chronic asthma, COPD, and hypertension chronic psoriasis who presents to the ED with complaint of acute onset persistent itchy erythematous painful psoriatic rash on the plantar aspect of the feet for the last 1 week. Patient states that she initially thought that the rashes could be related to her chronic psoriasis. Patient denies fever, chills, fall, traumatic injury, dizziness, syncope, cough, fall, swelling, chest pain or shortness of breath. MD Complaint: bilateral foot rash -: Sudden, week(s) (1) Location: lower extremity (bilateral plantar foot) Radiation: non-radiation Severity scale (0 -10): 6 Quality: burning Consistency: constant Improves with: none Worsens with: none Associated Symptoms: denies other symptoms, rash (erythematous itchy rashes on plantar foot bilaterally). denies: confusion, chest pain, cough, diaphoresis, fever/chills, headaches, loss of appetite, malaise, nausea/vomiting Treatments Prior to Arrival: none - Related Data Previous Rx's Medication Instructions Recorded Last Taken Type Cyclobenzaprine [Flexeril 10 MG 10 mg PO TID PRN #30 tablet 06/01/19 Unknown Rx TAB] Menthol/Camphor [[place] 1 applicatio TP QID #1 tube 06/01/19 Unknown Rx Ointment] Ondansetron [Zofran ODT TAB] 4 mg PO Q8HR PRN #15 tab.rapdis 03/03/20 Unknown Rx Pantoprazole [Protonix TAB] 40 mg PO QDAY #30 tablet 03/06/20 Unknown Rx Triamcinolone Acetonide 15 gm TP Q12H #1 tube 10/24/20 Unknown Rx [Triamcinolone Acetonide Oint 0.5%] Allergies Allergy/AdvReac Type Severity Reaction Status Date / Time Penicillins Allergy Unknown Verified 10/24/20 18:39 ED Review of Systems ROS: Stated complaint: BILATERAL LEG/FEET Other details as noted in HPI Constitutional: denies: chills, fever Eyes: denies: eye pain, eye discharge, vision change ENT: denies: ear pain, throat pain Respiratory: denies: cough, shortness of breath, wheezing Cardiovascular: denies: chest pain, palpitations Endocrine: no symptoms reported Gastrointestinal: denies: abdominal pain, nausea, diarrhea Genitourinary: denies: urgency, dysuria, discharge Musculoskeletal: denies: back pain, joint swelling, arthralgia Skin: rash (erythematous, dry scaly rash is on the plantar aspect of the feet bilaterally with itching), change in color, pruritus. denies: lesions Neurological: denies: headache, weakness, paresthesias Psychiatric: denies: anxiety, depression Hematological/Lymphatic: denies: easy bleeding, easy bruising ED Past Medical Hx - Past Medical History Hx Hypertension: Yes Hx Heart Attack/AMI: No Hx Congestive Heart Failure: No Hx Diabetes: No Hx Liver Disease: No Hx Renal Disease: No Hx Asthma: Yes Hx COPD: Yes Additional medical history: high cholesterol; psoriasis - Surgical History Past Surgical History?: No - Social History Smoking Status: Current Every Day Smoker - Medications Home Medications: Home Medications Medication Instructions Recorded Confirmed Last Taken Type Cyclobenzaprine [Flexeril 10 MG 10 mg PO TID PRN #30 tablet 06/01/19 06/11/20 Unknown Rx TAB] Menthol/Camphor [[place] 1 applicatio TP QID #1 tube 06/01/19 06/11/20 Unknown Rx Ointment] Ondansetron [Zofran ODT TAB] 4 mg PO Q8HR PRN #15 tab.rapdis 03/03/20 06/11/20 Unknown Rx Pantoprazole [Protonix TAB] 40 mg PO QDAY #30 tablet 03/06/20 06/11/20 Unknown Rx Triamcinolone Acetonide 15 gm TP Q12H #1 tube 10/24/20 Unknown Rx [Triamcinolone Acetonide Oint 0.5%] ED Physical Exam - General Limitations: No Limitations General appearance: alert, in no apparent distress - Head Head exam: Present: atraumatic, normocephalic, normal inspection - Eye Eye exam: Present: normal appearance, PERRL, EOMI Pupils: Present: normal accommodation - ENT ENT exam: Present: normal exam, normal orophraynx, mucous membranes moist, TM's normal bilaterally, normal external ear exam - Neck Neck exam: Present: normal inspection - Respiratory Respiratory exam: Present: normal lung sounds bilaterally. Absent: respiratory distress, wheezes, rales, rhonchi, chest wall tenderness, accessory muscle use, decreased breath sounds - Cardiovascular Cardiovascular Exam: Present: regular rate, normal rhythm, normal heart sounds. Absent: systolic murmur, diastolic murmur, rubs, gallop - GI/Abdominal GI/Abdominal exam: Present: soft, normal bowel sounds. Absent: tenderness, guarding, rebound, hyperactive bowel sounds, hypoactive bowel sounds, organomegaly - Extremities Exam Extremities exam: Present: normal inspection, normal capillary refill - Back Exam Back exam: Present: normal inspection - Neurological Exam Neurological exam: Present: alert, oriented X3 - Psychiatric Psychiatric exam: Present: normal affect, normal mood - Skin Skin exam: Present: warm, dry, intact, normal color, rash (Erythematous dry scaly tender rashes on the bilateral plantar foot), erythema, urticaria ED Course Vital Signs 10/24/20 18:40 Temperature 98.4 F Pulse Rate 84 Respiratory 20 Rate Blood Pressure 183/89 O2 Sat by Pulse 95 Oximetry ED Medical Decision Making - Medical Decision Making This is a 60-year-old white female with a history of chronic asthma, COPD, and hypertension chronic psoriasis who presents to the ED with complaint of acute onset persistent itchy erythematous painful psoriatic rash on the plantar aspect of the feet for the last 1 week. Patient states that she initially thought that the rashes could be related to her chronic psoriasis. In the ED, patient is alert and oriented x3 and is not in distress. Based on the history and physical exam findings, the patient was discharged home on triamcinolone acetonide 0.5% ointment to be administered twice a day topically. Patient was advised to follow-up with her primary care physician in 7 to 10 days for reevaluation or return to the ED immediately if symptoms get worse. - Differential Diagnosis Psoriasis; irritant dermatitis; eczema; tinea corporis Critical care attestation.: If time is entered above; I have spent that time in minutes in the direct care of this critically ill patient, excluding procedure time. ED Disposition Clinical Impression: Psoriasiform dermatitis, Irritant dermatitis Disposition: DC-01 TO HOME OR SELFCARE Is pt being admited?: No Does the pt Need Aspirin: No Condition: Stable Instructions: Psoriasis, [id number], Contact Dermatitis, [id number] Additional Instructions: Apply the medication to the affected area as advised, drink plenty of fluids, follow-up with your primary care physician in 7 to 10 days for reevaluation. Return to the ED immediately if symptoms get worse. Prescriptions: Triamcinolone Acetonide [Triamcinolone Acetonide Oint 0.5%] 15 gm TP Q12H #1 tu be Referrals: [facility] [Provider Group] - 3-5 Days Time of Disposition: 19:21 Print Language: [place]IZ[place]
== END 2020-10-24 19:53 | disposition home or self-care (01) ==
LOC: ED 18:10
DX: L24.9 Irritant contact dermatitis, unspecified cause (principal); L30.8 Other specified dermatitis; I10 Essential (primary) hypertension; J44.9 Chronic obstructive pulmonary disease, unspecified; F17.200 Nicotine dependence, unspecified, uncomplicated; Z79.899 Other long term (current) drug therapy; Z88.0 Allergy status to penicillin
CPT/HCPCS: 99281

== ENCOUNTER 2021-03-07 07:36 | Day surgery (SDC) | payer MEDICARE ==
[2021-03-04 09:56] LABS: Hematocrit 43.1 % (30.3-42.9); Hemoglobin 14.4 gm/dl (10.1-14.3); Mean Corpuscular HGB Conc 33 % (30-34); Mean Corpuscular Volume 91 fl (79-97); Platelet Count 251 K/mm3 (140-440); Red Blood Count 4.73 M/mm3 (3.65-5.03); Red Cell Distribution Width 15.7 % (13.2-15.2)
[2021-03-04 10:17] LABS: BUN/Creatinine Ratio 23; Blood Urea Nitrogen 21 mg/dL (7-17); Calcium 9.9 mg/dL (8.4-10.2); Hemolysis Index 16
--- NOTE | 2021-03-04 15:47 | Anesthesia Consultation ---
Anesthesia Consult and Med Hx Date of service: 03/07/21 - Airway Anesthetic Teeth Evaluation: Dentures ROM Head & Neck: Adequate Mental/Hyoid Distance: Adequate Mallampati Class: Class III Intubation Access Assessment: Possibly Difficult - Pulmonary Exam CTA: Yes (breath sounds diminshed bilaterally) - Cardiac Exam Cardiac Exam: RRR - Pre-Operative Health Status ASA Pre-Surgery Classification: ASA4 Proposed Anesthetic Plan: General - Pulmonary Hx Smoking: Yes (currently 1/2 PPD,previous 2-3 PPD x 40yrs) Hx Asthma: Yes Hx Respiratory Symptoms: Yes (GAUTAM; chronic and stable) COPD: Yes Home Oxygen Therapy: Yes (2-3L NC continuously) Hx Pneumonia: No Hx Sleep Apnea: No (reports neg sleep study 5 yrs ago; high EFRAÍN screen score) - Cardiovascular System Hx Hypertension: Yes Hx Heart Attack/AMI: No Hx Percutaneous Transluminal Coronary Angioplasty (PTCA): No Hx Cardia Arrhythmia: No Hx Peripheral Vascular Disease: Yes (LLE) - Central Nervous System CVA: No Hx Back Pain: Yes (radiating to RLE w/ pain, weakness, numbness) Hx Psychiatric Problems: Yes (anxiety, depression) - Gastrointestinal Hx Gastroesophageal Reflux Disease: Yes (dysphagia 2/2 esophageal stricture s/p multiple dilations) - Endocrine Hx Renal Disease: No Hx End Stage Renal Disease: No Hx Liver Disease: No Hx Non-Insulin Dependent Diabetes: Yes Hx Thyroid Disease: No - Other Systems Hx Obesity: Yes (BMI 34) - Additional Comments Anesthesia Medical History Comments: No hx anesthetic complications. Hx psorasis not currently on steroids or immunomodulators. Had preop pulmonary eval; records requested. Discussed risk of perioperative pulmonary complications given baseline respiratory status. Verbalized understanding.
[~2021-03-07 07:36] MED LIST: ACETAMINOPHEN 500 MG TAB PO SCH; LACTATED RINGERS 1,000 ML IV SCH; MIDAZOLAM 2 MG/2 ML INJ IV NR; SCOPOLAMINE TRANSDERMAL PATCH 72 HR TD NR; VANCOMYCIN 1,500 MG in SODIUM CHLORIDE 0.9% 500 ML 500 ML IV NR; VANCOMYCIN/NS 1 GM/250 ML 1 GM/250 ML BAG IV NR
[2021-03-07] MEDS ORDERED: ONDANSETRON 4 MG/2 ML INJ IV PRN (09:28)
[2021-03-07] MEDS ORDERED: HYDROmorphone 1 MG/1 ML INJ IV PRN (09:28)
[2021-03-07] MEDS ORDERED: BUPIVACAINE/PF (0.5%) 5 MG/1 ML 30 ML VIAL INFILTRATI ONE ×2 (10:26→12:07)
[2021-03-07] MEDS ORDERED: LIDOCAINE (1%) 10 MG/1 ML VIAL 20 ML MDV ONE (10:26)
--- NOTE | 2021-03-07 10:42 | Anesthesia Day of Surgery ---
Anesthesia Day of Surgery - Day of Surgery Patient Examined: Yes Patient H&P Reviewed: Yes Patient is NPO: Yes Pulmonary Clearance: Yes
[2021-03-07] MEDS ORDERED: propofoL 200 MG/20 ML VIAL IV ONE (11:20)
[2021-03-07] MEDS ORDERED: SUCCINYLCHOLINE CHLORIDE 200 MG/10 ML INJ MDV ONE (11:50)
[2021-03-07] MEDS ORDERED: ROCURONIUM 50 MG/5 ML INJ IV ONE (11:50)
[2021-03-07] MEDS ORDERED: KETOROLAC 30 MG/1 ML INJ ONE (12:00)
[2021-03-07] MEDS ORDERED: ONDANSETRON 4 MG/2 ML INJ ONE (12:00)
[2021-03-07] MEDS ORDERED: SODIUM CHLORIDE 0.9% IRR 1,500 ML BOTTLE IR ONE (12:08)
[2021-03-07] MEDS ORDERED: LIDOCAINE (1%) 10 MG/1 ML VIAL 20 ML MDV INFILTRATI ONE (12:08)
[2021-03-07] MEDS ORDERED: hydrALAZINE 20 MG/1 ML INJ ONE (12:18)
[2021-03-07] MEDS ORDERED: LIDOCAINE MPF (2%) 20 MG/1 ML VIAL 5 ML ONE (12:19)
[2021-03-07] MEDS ORDERED: NEOSTIGMINE 10MG/10 ML INJ MDV ONE (12:20)
[2021-03-07] MEDS ORDERED: GLYCOPYRROLATE 0.4 MG/2 ML INJ ONE (12:20)
[2021-03-07] MEDS ORDERED: ALBUTEROL 2.5 MG/3 ML NEBU IH SCH (13:00)
--- NOTE | 2021-03-07 13:04 | Short Stay Summary ---
Short Stay Documentation Date of service: 03/07/21 - History Principal diagnosis: symptomatic cholelithiasis H&P: obtained from office - Allergies and Medications Current Medications: Allergies Penicillins Allergy (Verified 03/04/21 10:54) Itching Home Medications Medication Instructions Recorded Confirmed Last Taken Type Ondansetron [Zofran ODT TAB] 4 mg PO Q8HR PRN #15 tab.rapdis 03/03/20 03/04/21 03/06/21 Rx ALBUTEROL NEB's [Proventil 0.083% 2.5 mg IH TID PRN 03/04/21 03/04/21 02/04/21 History NEBS] Albuterol Sulfate [Proventil Hfa] 2 puff IH PRN PRN 03/04/21 03/04/21 02/04/21 History Apremilast [Otezla] 40 mg PO DAILY 03/04/21 03/04/21 03/06/21 History Aspirin [Adult Aspirin] 81 mg PO DAILY 03/04/21 03/07/21 03/03/21 History Baclofen [Lioresal] 10 mg PO PRN PRN 03/04/21 03/04/21 03/06/21 History Cholecalciferol (Vitamin D3) 2,000 unit PO QDAY 03/04/21 03/04/21 03/06/21 History [Vitamin D3 2,000 UNIT CAP] Citalopram [celeXA] 20 mg PO QDAY 03/04/21 03/04/21 03/06/21 History Escitalopram [Lexapro] 10 mg PO DAILY 03/04/21 03/04/21 03/07/21 06:00 History Fluticasone [Flonase] 1 spray NS QDAY 03/04/21 03/04/21 03/06/21 History Fluticasone/Umeclidin/Vilanter 1 each IH DAILY 03/04/21 03/04/21 03/06/21 History [Trelegy Ellipta 100-62.5-25] HYDROcodone/APAP 5-325 [[place] 1 each PO Q6HR PRN 03/04/21 03/04/21 03/06/21 History 5/325] Lovastatin [Altoprev] 40 mg PO DAILY 03/04/21 03/04/21 03/06/21 History [place]-3S/Dha/Epa/Algal Oil 1 tab PO DAILY 03/04/21 03/04/21 03/06/21 History [Megared Advanced [place]-3 Algae] Omeprazole 10 mg PO DAILY 03/04/21 03/04/21 03/07/21 06:00 History Pregabalin [Lyrica] 150 mg PO TID 03/04/21 03/04/21 03/06/21 History Valacyclovir HCl [Valacyclovir] 500 mg PO BID 03/04/21 03/04/21 03/06/21 History Ziprasidone [Geodon] 30 mg PO BID 03/04/21 03/04/21 03/06/21 History cloNIDine-TTS PATCH [Catapres-Tts 1 patch TD Q7D 03/04/21 03/04/21 03/06/21 History 0.3mg Patch] hydrOXYzine PAMOATE [Vistaril] 25 mg PO Q6HR PRN 03/04/21 03/04/21 03/06/21 History metFORMIN [Glucophage] 500 mg PO BID 03/04/21 03/04/21 03/07/21 06:00 History traZODone [Desyrel] 50 mg PO QHS 03/04/21 03/04/21 03/06/21 History clonazePAM [Klonopin] 1 mg PO BID 03/07/21 03/07/21 03/06/21 History Active Medications Acetaminophen (Acetaminophen 500 Mg Tab) 1,000 mg PO PREOP TENZIN Last Admin: 03/07/21 08:45 Dose: 1,000 mg Documented by: Hydromorphone HCl (Hydromorphone 1 Mg/1 Ml Inj) 0.25 mg IV Q10MIN PRN PRN Reason: Pain, Moderate (4-6) Stop: 03/07/21 23:00 Lactated Ringer's (Lactated Ringers) 1,000 mls @ 50 mls/hr IV DIRECT TENZIN Stop: 03/07/21 23:59 Last Admin: 03/07/21 08:31 Dose: 50 mls/hr Documented by: Vancomycin HCl 1,500 mg/ (Sodium Chloride) 530 mls @ 333.333 mls/hr IV PREOP NR Stop: 03/07/21 20:00 Last Admin: 03/07/21 10:17 Dose: 333.333 mls/hr Documented by: Midazolam HCl (Midazolam 2 Mg/2 Ml Inj) 2 mg IV PREOP NR Stop: 03/08/21 05:59 Last Admin: 03/07/21 10:33 Dose: 2 mg Documented by: Ondansetron HCl (Ondansetron 4 Mg/2 Ml Inj) 4 mg IV ONCE PRN PRN Reason: Nausea And Vomiting Stop: 03/07/21 16:00 Scopolamine (Scopolamine Transdermal Patch 72 Hr) 1 each TD PREOP NR Stop: 03/08/21 05:59 Last Admin: 03/07/21 08:31 Dose: 1 each Documented by: - Brief post op/procedure progress note Date of procedure: 03/07/21 Pre-op diagnosis: symptomatic cholelithiasis Post-op diagnosis: same Procedure: laparoscopic cholecystectomy Anesthesia: GETA, local Findings: Distended gallbladder with adhesions to omentum Mobile stone in gallbladder Fatty liver Surgeon: SANTA MURRY (Kathy Porter MD - Assist) Estimated blood loss: minimal Pathology: list (gallbladder) Specimen disposition: to lab Condition: stable - Hospital course Hospital course: Pt observed in PACU and discharged to home in stable condition - Disposition Condition at discharge: Good Disposition: DC-01 TO HOME OR SELFCARE Short Stay Discharge Plan Activity: other (no heavy lifting for 2 wks) Diet: low fat Wound: open to air, per your surgeon's advice Follow up with: CHANEL GARCIA MD [Primary Care Provider] - 7 Days SANTA MURRY DO [Staff Physician] - 14 Days Prescriptions: HYDROcodone/APAP 5-325 [[place] 5-325 mg TAB] 1 each PO Q6HR PRN 5 Days #20 tab PRN Reason: Pain , Severe (7-10)
[2021-03-07] MEDS ORDERED: ALBUTEROL 2.5 MG/3 ML NEBU IH ONE (13:18)
--- NOTE | 2021-03-07 15:04 | Post Anesthesia Evaluation ---
- Post Anesthesia Evaluation Patient Participated: Yes Airway Patent: Yes Stable Respiratory Function: Yes (2L NC) Nausea/Vomiting: No Temp > 96.8F: Yes Pain Manageable: Yes Adequeate Hydration: Yes Anesthesia Complications: No
[2021-03-07 15:44] VITALS: BP 121/44
--- NOTE | 2021-03-07 17:37 | Operative Report ---
Operative Report Operative Report: Date of procedure: 03/07/21 Pre-op diagnosis: symptomatic cholelithiasis Post-op diagnosis: same Procedure: laparoscopic cholecystectomy Anesthesia: GETA, local Findings: Distended gallbladder with adhesions to omentum Mobile stone in gallbladder Fatty liver Surgeon: SANTA MURRY (Kathy Porter MD - Assist) Estimated blood loss: minimal Pathology: list (gallbladder) Specimen disposition: to lab Condition: stable Hospital course: Pt observed in PACU and discharged to home in stable condition HPI an indication: 61-year-old female who presented to the surgery clinic with complaints of intermittent sharp right upper quadrant abdominal pain. Patient was found to have cholelithiasis without evidence of cholecystitis or bile duct dilatation. It was recommended that the patient undergo cholecystectomy. All risks, benefits, alternatives to surgery were discussed in detail and questions answered. Consent was obtained for laparoscopic, possible open cholecystectomy, possible cholangiogram. Procedure in detail: The patient was identified in the preoperative area and taken back to the operating room, placed on the operating room table in supine position. After anesthesia was induced, the abdomen was prepped and draped in usual sterile fashion and timeout was performed. Local anesthetic was infiltrated into all of the skin incision sites. Using an 11 blade, a supraumbilical incision was made through which a Veress needle was inserted. The position of the veress needle was confirmed with the saline drop test and the abdomen was then insufflated to 15 mmHg without incident. The veress needle was then removed and a 5 mm Optiview trocar placed through this incision. The abdomen was then inspected and there was no underlying injury to any of the abdominal contents. An additional 12 mm subxyphoid port, and 2, 5mm RUQ ports were then placed under direct visualization. The patient was then placed into reverse Trendelberg and tilted to the left. There were omental adhesions to the gallbladder and right lobe of the liver. The gallbladder was distended. The patient had a large liver. Omental adhesions to the gallbladder and liver were dissected using hook electrocautery. The gallbladder fundus was then grasped and retracted cephalad however due to the fatty nature of the liver the gallbladder could not be retracted enough to visualize the neck of the gallbladder adequately. Therefore it was decided to perform a dome down approach. The peritoneum at the dome of the gallbladder was scored using hook electrocautery and the gallbladder dissected from the liver bed. Hemostasis was carefully achieved along the way. This dissection was carried down to the neck of the gallbladder. The gallbladder was then able to be successfully retracted above the liver in order to gain better access to the area of the cystic duct and artery. The cystic duct and artery were then carefully skeletonized using a combination of blunt dissection with [place] dissector and with hook electrocautery. The cystic duct and artery were very carefully skeletonized. A very small posterior branch of the cystic artery was also identified. The structures were the only structures seen entering the gallbladder and the critical view was successfully obtained. 3 clips were placed on the proximal aspect the cystic duct and 1 distally and this was transected in between the clips using EndoShears. 2 clips were placed on the proximal aspect of the the cystic artery and the posterior branch and one distally and these were transected in between the clips using electrocautery. The remaining adhesions from the gallbladder to the liver were then dissected using hook electrocautery and the gallbladder completely dissected from the liver bed. Gallbladder was placed into an Endo Catch bag and removed from the abdomen via the 12 mm port. The gallbladder fossa and liver bed were then inspected and hemostasis carefully achieved using electrocautery. There was no bleeding or bile leakage seen. The clips on the cystic duct and artery were visualized and intact. The patient was placed in neutral position. Ashley powder was sprayed onto the liver bed. 12 mm port was removed and the fascia closed with interrupted 0 Vicryl suture using the Andrey Tran device. The remainder of the ports were removed and the abdomen desufflated. Skin incisions were closed with 4-0 Monocryl subcuticular stitches and skin glue. All skin incisions were once again infiltrated with local anesthetic. Gallbladder was examined on the back table. There was only one tubular structure identified entering the gallbladder. The clip was removed and light bilious fluid expressed from the gallbladder. There was also 1 mobile stone palpated in the gallbladder At the end case all sponge, instrument, sharp counts were correct 2. The patient was awoken from anesthesia, extubated, and taken to PACU in stable condition.
--- NOTE | 2021-03-07 18:16 | Electrocardiograph Report ---
[facility] Test Date: 2021-03-07 Test Time: 10:23:25 Pat Name: MADDIE العلي Department: Room: Gender: F Research Spec: ALTHEA : 1960 Requested By: AJAY PETERSON Order Number: [id number] Reading MD: Jaime Rinaldi Measurements Intervals [place] Rate: 81 P: -88 MA: 123 QRS: -32 QRSD: 100 T: 58 QT: 406 QTc: 471 Interpretive Statements Ectopic atrial rhythm Intermittent PACs Left axis deviation No previous ECG available for comparison Electronically Signed On 03-07-2021 18:16:14 EDT by Jaime Rinaldi
== END 2021-03-07 14:25 | disposition home or self-care (01) ==
LOC: OR 07:36
PROVIDERS: ATTEND Surgery
DX: K80.10 Calculus of gallbladder with chronic cholecystitis without obstruction (principal); Z20.822 Contact with and (suspected) exposure to COVID-19; K66.0 Peritoneal adhesions (postprocedural) (postinfection); F17.210 Nicotine dependence, cigarettes, uncomplicated; J44.9 Chronic obstructive pulmonary disease, unspecified; G43.909 Migraine, unspecified, not intractable, without status migrainosus; E78.00 Pure hypercholesterolemia, unspecified; I10 Essential (primary) hypertension; K21.9 Gastro-esophageal reflux disease without esophagitis; E66.9 Obesity, unspecified; M19.90 Unspecified osteoarthritis, unspecified site; E11.51 Type 2 diabetes mellitus with diabetic peripheral angiopathy without gangrene; F32.9 Major depressive disorder, single episode, unspecified; F41.9 Anxiety disorder, unspecified; Z79.899 Other long term (current) drug therapy; Z88.0 Allergy status to penicillin; Z79.82 Long term (current) use of aspirin; Z79.84 Long term (current) use of oral hypoglycemic drugs; Z98.51 Tubal ligation status; Z98.890 Other specified postprocedural states; Z68.34 Body mass index [BMI] 34.0-34.9, adult
CPT/HCPCS: 36415; 47562; 80048; 82962; 85027; 88304; 93005; J0330; J0360; J1885; J2250; J2405; J2704; J2710; J3370; J7040; J7120; S2900; U0003